=== PATIENT | male | born 2000 | race Caucasian/White ===

== ENCOUNTER 2020-12-11 13:35 | Emergency (ER) | payer OTHER, SELFPAY ==
[2020-12-11 13:31] VITALS: BP 157/86; PULSE 120; RESP 21; TEMP 37.9; O2SAT 98
--- NOTE | 2020-12-11 13:42 | ED.PSYCH ---
HPI - Psych General Chief Complaint: Psychiatric Symptoms Stated Complaint: medical evaulation , w/ PD History of Present Illness HPI Narrative: Found wander in the [place] with no shoes on. He says that he has been having psychological problems for a long time, but he has not told anybody. His sister reportedly confirmed that he has always acted strange, but it has gotten worse recently. He does express delusions in several areas and says that he has special knowledge about good and evil. He has done unforgivable sin, but he just wants to be a normal person. He denies any drug use. No SI, HI. Related Data Allergies Allergy/AdvReac Type Severity Reaction Status Date / Time No Known Allergies Allergy Verified 12/11/20 13:46 Review of Systems Review of Systems: ROS unobtainable: Yes other (limited due to psychiatric condition) Constitutional: Constitutional: Denies fever(s) and Denies weakness Eyes: Eyes: Reports no additional eye complaints Cardiovascular: Cardiovascular: Denies chest pain Respiratory: Respiratory: Denies dyspnea Gastrointestinal: Gastrointestinal: Denies nausea Neurologic: Denies weakness Psychiatric: Psychiatric: Denies homicidal ideation and Denies suicidal ideation [facility] Social History Social History Substance use type: marijuana Gender identity (if verbalized by the patient): Male Exam Const: General: healthy appearing, no acute distress and alert Orientation/consciousness: patient oriented x3 HENMT: Head: normal to inspection Eyes: Conjunctivae: conjunctivae normal Pupils: Equal, round and reactive pupils present EOM: EOMs intact bilaterally Neck: Neck: normal visual inspection Resp: Effort & Inspection: normal respiratory effort Auscultation: clear to auscultation bilaterally Cardio: Rate: tachycardic Rhythm: regular rhythm GI: GI Palp: Yes Soft to palpation and No Tenderness to palpation present (GI) Skin: General skin exam: normal color Neuro: General: patient oriented x3, no focal motor deficits and CN's II-XI intact bilaterally Gait exam (Neuro): Normal gait present Extrem: Other: Arrive barefoot with feet covered in mud Psych: Appearance: disheveled Speech and movement: Pressured speech present Affect: Anxious affect present Attitude: Guarded attititude/behavior present Thought process: Flight of ideas present and Tangential thought process present Thought content: No Suicidality present, No Homicidality present and Yes delusions Insight: Fair insight present (Psych) Course Vital Signs Vital signs: Vital Signs Temperature 37.9 C H 12/11/20 13:31 Pulse Rate 120 H 12/11/20 13:31 Respiratory Rate 21 H 12/11/20 13:31 Blood Pressure 157/86 H 12/11/20 13:31 Pulse Oximetry 98 12/11/20 13:31 Temperature 37.9 C H 12/11/20 13:31 Pulse Rate 85 12/11/20 17:59 Respiratory Rate 18 12/11/20 17:59 Blood Pressure 127/78 12/11/20 17:59 Pulse Oximetry 99 12/11/20 17:59 MDM - Psych MDM Narrative Medical decision making narrative: He appears to be in acute andrew. Seen by crisis and they do not believe that he is an immediate threat to himself or others. They recommend outpatient treatment. They will provide resources. Differential Diagnosis Differential diagnosis: Likely acute psychosis, chronic schizophrenia and bipolar disorder Lab Data Result diagrams: 12/11/20 14:03 12/11/20 14:03 Labs: Lab Results 12/11/20 12/11/20 12/11/20 Range/Units 14:03 14:03 14:03 WBC 7.1 (4.5-10.0) K/mm3 RBC 4.73 (4.6-6.20) M/mm3 Hgb 14.3 (14.0-18.0) g/dL Hct 41.7 L (42.0-52.0) % MCV 88.2 (80-100) fl MCH 30.2 (26-34) pg MCHC 34.3 (32-36) g/dl RDW 12.0 (11.5-14.5) % Plt Count 210 (150-375) k/mm3 MPV 11.7 H (7.4-10.4) fl Immature Gran % (Auto) 0.1 (0-0.5) % Neut % (Auto) 72.1 (45.5-73.1) % Lymph % (Auto)
[2020-12-11 14:16] LABS: Basophils Percent Auto 0.4 % (0.2-1.2); Eosinophils Percent Auto 0.6 % (0-4.4); Hematocrit 41.7 % (42.0-52.0); Hemoglobin 14.3 g/dL (14.0-18.0); Immature Granulocyte Absolute 0.01 K/mm3 (0.00-0.031); Immature Granulocyte Percent A 0.1 % (0-0.5); Lymphocytes Absolute Auto 1.32 K/mm3 (0.9-3.2); Lymphocytes Percent Auto 18.5 % (18.3-44.2); Mean Corpuscular HGB Conc 34.3 g/dl (32-36); Mean Corpuscular Hemoglobin 30.2 pg (26-34); Mean Corpuscular Volume 88.2 fl (80-100); Mean Platelet Volume 11.7 fl (7.4-10.4); Monocytes Absolute Auto 0.6 K/mm3 (0.1-0.6); Monocytes Percent Auto 8.3 % (2.6-8.5); Neutrophils Absolute Auto 5.1 K/mm3 (1.3-6.7); Neutrophils Percent Auto 72.1 % (45.5-73.1); Platelet Count Result 210 k/mm3 (150-375); Red Blood Count 4.73 M/mm3 (4.6-6.20); White Blood Count 7.1 K/mm3 (4.5-10.0)
[2020-12-11 14:42] LABS: Alanine Aminotransferase 20 U/L (4-50); Albumin Level 4.9 g/dL (3.5-5.1); Alkaline Phosphatase 81 U/L (38-126); Anion Gap 11 mmol/L (8-16); Aspartate Amino Transferase 55 U/L (17-59); Blood Urea Nitrogen 11 mg/dL (9-20); Calcium 9.5 mg/dL (8.4-10.2); Carbon Dioxide 26 mmol/L (22-30); Chloride 104 mmol/L (98-107); Estimated CRCL calculation 99 ml/min; Estimated Glomerular Filt Rate > 60; Glucose 107 mg/dL (75-110); Sodium 141 mmol/L (137-145)
[2020-12-11 14:57] LABS: Potassium 3.9 mmol/L (3.4-5.0)
--- NOTE | 2020-12-11 15:40 | PC.NURSE ---
Spoke with Fabien in lab about COVID swab sent to lab. Reminded him COVID swab for psych placement
[2020-12-11 17:20] LABS: Add Urine Microscopic? YES; Appearance Urine Cloudy (Clear); Bilirubin Urine Negative (Negative); Blood Urine Negative (Negative); Color Urine Yellow (Yellow); Glucose Urine UA Negative (Negative); Ketones Urine 2+ mg/dL (Negative); Leukocyte Esterase Ur Negative LEU/UL (Negative); Mucus Urine Moderate /lpf; Nitrate Urine Negative (Negative); Protein Urine 3+ mg/dL (Negative); RBC Urine 0-2 /hpf (0-2); Squamous Epithelial Cell Urine Rare /hpf (Few); WBC Urine 0-3 /hpf
[2020-12-11 17:28] LABS: Specific Grav Ur 1.033 (1.001-1.035)
[2020-12-11 17:37] LABS: Ethanol < 10 mg/dL (<10)
[2020-12-11 17:40] LABS: Amphetamine Screen Urine Negative (Negative); Barbiturate Screen Urine Negative (Negative); Benzodiazepines Screen Urine Negative (Negative); Cannabinoid Screen Urine Positive (Negative); Cocaine Screen Urine Negative (Negative); Methadone Screen Urine Negative (Negative); Opiate Screen Urine Negative (Negative); Phencyclidine Screen Urine Negative (Negative)
[2020-12-11 17:59] VITALS: BP 127/78; PULSE 85; RESP 18; O2SAT 99
--- NOTE | 2020-12-11 18:17 | PC.NURSE ---
Called crisis at this time, left a message to call back (due to VM prompt)
--- NOTE | 2020-12-11 18:22 | PC.NURSE ---
Called dietary and ordered dinner tray for pt
--- NOTE | 2020-12-11 19:19 | PC.NURSE ---
Pts sister requests updates [phone]
[2020-12-11 20:32] VITALS: TEMP 36.6
[2020-12-11 20:55] VITALS: BP 121/74; PULSE 78; RESP 16; TEMP 36.3; O2SAT 99
[2020-12-11 21:07] VITALS: BP 121/76; PULSE 78; RESP 16; TEMP 36.3; O2SAT 100
[2020-12-12 19:49] LABS: SARS-CoV-2 RNA PCR Negative
== END 2020-12-11 22:02 | disposition home or self-care (01) ==
PROVIDERS: Emergency Provider Emergency Medicine
DX: F23 Brief psychotic disorder (principal); Z20.822 Contact with and (suspected) exposure to COVID-19
CPT/HCPCS: 36415; 51701; 80053; 80307; 81001; 84443; 85025; 99283; C9803; U0003; U0005